=== PATIENT | male | born 1985 | race Caucasian/White ===

== ENCOUNTER 2021-05-02 13:48 | Emergency (ER) | payer OTHER ==
[~2021-05-02 13:48] MED LIST: ATARAX25 MG PO; BIPOLAR MED PO; BP MED; KEFLEX500 M1 PO; PRAVACHOL40 MG PO; PREDNICOT20 MG PO; RISPERDAL2 M1 PO; SEROQUEL XR200 MG PO; SEROQUEL25 MG PO; SYNTHROID300 MCG PO
== END 2021-05-02 14:22 | disposition left against medical advice (07) ==
LOC: ED 13:48
DX: R10.9 Unspecified abdominal pain (principal); Z53.21 Procedure and treatment not carried out due to patient leaving prior to being seen by health care provider

== ENCOUNTER 2021-09-30 07:55 | Emergency (ER) | payer OTHER ==
[~2021-09-30] VITALS: Wt 81.6 kg
[2021-09-30 08:08] VITALS: BP 100/83
== END 2021-09-30 13:36 | disposition home or self-care (01) ==
LOC: ED 07:55
DX: R51.9 Headache, unspecified (principal); E03.9 Hypothyroidism, unspecified; E78.00 Pure hypercholesterolemia, unspecified; F17.200 Nicotine dependence, unspecified, uncomplicated

== ENCOUNTER 2021-10-10 09:46 | Emergency (ER) | payer OTHER ==
[2021-10-10 09:50] VITALS: BP 124/87
[2021-10-10] MEDS ORDERED: IBU800 MG PO (10:21)
== END 2021-10-10 10:28 | disposition home or self-care (01) ==
LOC: ED 09:46
DX: M54.6 Pain in thoracic spine (principal)

== ENCOUNTER 2022-04-06 00:09 | Emergency (ER) | payer OTHER ==
[~2022-04-06] VITALS: Ht 180.3 cm; Wt 81.6 kg
[~2022-04-06 00:09] MED LIST changes: +IBU800 MG PO
[2022-04-06 00:44] VITALS: BP 121/79
[2022-04-06] MEDS ORDERED: CYCLOBENZAPRINE10 MG PO (03:18)
[2022-04-06] MEDS ORDERED: NAPROSYN500 MG PO (03:18)
== END 2022-04-06 03:22 | disposition home or self-care (01) ==
LOC: ED 00:09
DX: G58.8 Other specified mononeuropathies (principal); M62.830 Muscle spasm of back; M54.50 Low back pain, unspecified

== ENCOUNTER 2023-01-31 13:36 | Emergency (ER) | payer OTHER ==
[~2023-01-31 13:36] MED LIST changes: +CYCLOBENZAPRINE10 MG PO; +NAPROSYN500 MG PO
[2023-01-31 13:54] VITALS: BP 126/79
== END 2023-01-31 14:00 | disposition left against medical advice (07) ==
LOC: ED 13:36
DX: Z00.00 Encounter for general adult medical examination without abnormal findings (principal); Z53.21 Procedure and treatment not carried out due to patient leaving prior to being seen by health care provider

== ENCOUNTER 2024-04-07 21:53 | Emergency (ER) | payer OTHER ==
[~2024-04-07] VITALS: Ht 170.1 cm; Wt 81.6 kg
[2024-04-07 22:21] VITALS: BP 136/89
== END 2024-04-07 23:00 | disposition left against medical advice (07) ==
LOC: ED 21:53
DX: M25.562 Pain in left knee (principal); M25.561 Pain in right knee; I10 Essential (primary) hypertension; E03.9 Hypothyroidism, unspecified; E78.00 Pure hypercholesterolemia, unspecified; E78.5 Hyperlipidemia, unspecified; F31.9 Bipolar disorder, unspecified; Z53.21 Procedure and treatment not carried out due to patient leaving prior to being seen by health care provider

== ENCOUNTER 2024-04-13 23:29 | Emergency (ER) | payer OTHER ==
[~2024-04-13] VITALS: Wt 81.6 kg
[2024-04-13 23:50] VITALS: BP 137/78
[2024-04-13] MEDS ORDERED: BUSPIRONE HCL10 MG PO (23:51)
== END 2024-04-14 00:22 | disposition home or self-care (01) ==
LOC: ED 23:29
DX: Z59.00 Homelessness unspecified (principal); E03.9 Hypothyroidism, unspecified; F31.9 Bipolar disorder, unspecified; Z87.891 Personal history of nicotine dependence

== ENCOUNTER 2024-05-15 20:28 | Emergency (ER) | payer OTHER ==
[~2024-05-15] VITALS: Ht 177.8 cm; Wt 90.7 kg
[~2024-05-15 20:28] MED LIST changes: +BUSPIRONE HCL10 MG PO
[2024-05-15 20:45] VITALS: BP 127/91
[2024-05-15 21:24] LABS: BASO % 0.6 % (0.0-1.0); EOS # 0.1 10*3/uL (0.0-0.4); EOS % 1.1 % (1.0-4.0); HEMATOCRIT 41.1 % (42.0-52.0); MEAN CELL VOLUME 91.7 fl (80.0-94.0); MEAN CORPUSCULAR HGB 29.7 pg (27.0-31.0); MEAN CORPUSCULAR HGB CONC 32.4 g/dl (33.0-37.0); MEAN PLATELET VOLUME 10.1 fl (9.6-12.3); MONO # 0.7 10*3/uL (0.1-1.0); NEUT % 68.9 % (47.0-73.0); PLATELET COUNT AUTOMATED 352 10*3/uL (130-400); RED BLOOD COUNT 4.48 10*6/uL (4.50-5.90); RED CELL DISTRI WIDTH 13.3 % (0-14.5); WHITE BLOOD COUNT 7.3 10*3/uL (4.8-10.8)
[2024-05-15 21:43] LABS: BUN 14 mg/dl (9-23); CHLORIDE 106 mmol/L (98-107); POTASSIUM 3.8 mmol/L (3.4-5.1)
== END 2024-05-15 22:25 | disposition home or self-care (01) ==
LOC: ED 20:28
PROVIDERS: Internal Medicine
DX: F41.9 Anxiety disorder, unspecified (principal); E03.9 Hypothyroidism, unspecified; E78.00 Pure hypercholesterolemia, unspecified; E78.5 Hyperlipidemia, unspecified; F31.9 Bipolar disorder, unspecified; Z59.00 Homelessness unspecified

== ENCOUNTER → 2024-05-16 | Outpatient (CLI) | payer OTHER | END | disposition home or self-care (01) | LOC: RESCLI 15:27 | PROVIDERS: ATTEND Internal Medicine | DX: S62.101A Fracture of unspecified carpal bone, right wrist, initial encounter for closed fracture (principal); F31.9 Bipolar disorder, unspecified; Z79.899 Other long term (current) drug therapy ==

== ENCOUNTER 2024-09-07 18:01 | Emergency (ER) | payer OTHER ==
[~2024-09-07] VITALS: Ht 172.7 cm; Wt 90.7 kg
[2024-09-07 18:59] VITALS: BP 127/95
[2024-09-07] MEDS ORDERED: MEDROL DOSEPAK4 MG PO (20:57)
== END 2024-09-07 20:57 | disposition home or self-care (01) ==
LOC: ED 18:01
DX: B34.9 Viral infection, unspecified (principal); Z20.822 Contact with and (suspected) exposure to COVID-19; F41.9 Anxiety disorder, unspecified; F17.200 Nicotine dependence, unspecified, uncomplicated; Z79.899 Other long term (current) drug therapy

== ENCOUNTER 2024-09-28 14:49 | Emergency (ER) | payer OTHER ==
[~2024-09-28] VITALS: Ht 172.7 cm; Wt 90.7 kg
[~2024-09-28 14:49] MED LIST changes: +MEDROL DOSEPAK4 MG PO
[2024-09-28 14:55] VITALS: BP 121/82
[2024-09-28] MEDS ORDERED: NAPROSYN500 MG PO (15:05)
== END 2024-09-28 15:12 | disposition home or self-care (01) ==
LOC: ED 14:49
DX: G89.29 Other chronic pain (principal); M25.531 Pain in right wrist; Z79.899 Other long term (current) drug therapy

== ENCOUNTER 2024-10-11 18:22 | Emergency (ER) | payer OTHER ==
[~2024-10-11] VITALS: Ht 172.7 cm; Wt 90.7 kg
[2024-10-11 18:31] VITALS: BP 121/76
[2024-10-11] MEDS ORDERED: PREDNISONE20 M1 PO (18:46)
[2024-10-11] MEDS ORDERED: predniSONE 20 MG TAB PO ONE (18:50)
== END 2024-10-11 18:53 | disposition home or self-care (01) ==
LOC: ED 18:22
DX: M54.41 Lumbago with sciatica, right side (principal); F41.9 Anxiety disorder, unspecified; E78.5 Hyperlipidemia, unspecified; I10 Essential (primary) hypertension; E03.9 Hypothyroidism, unspecified; Z79.899 Other long term (current) drug therapy

== ENCOUNTER → 2024-10-30 | Outpatient (CLI) | payer OTHER ==
[~2024-10-30] MED LIST changes: +PREDNISONE20 M1 PO
== END | disposition home or self-care (01) ==
LOC: RESCLI 08:02
PROVIDERS: ATTEND Student in an Organized Health Care Education/Training Program
DX: F41.1 Generalized anxiety disorder (principal); S62.101A Fracture of unspecified carpal bone, right wrist, initial encounter for closed fracture; F31.9 Bipolar disorder, unspecified; Z79.899 Other long term (current) drug therapy

== ENCOUNTER → 2024-11-05 | Outpatient (CLI) | payer OTHER | END | disposition home or self-care (01) | LOC: ORTHO 00:47 | PROVIDERS: ATTEND Orthopaedic Surgery | DX: M19.031 Primary osteoarthritis, right wrist (principal); M25.731 Osteophyte, right wrist ==